=== PATIENT | female | born 1990 | race Caucasian/White ===

== ENCOUNTER 2016-10-29 18:42 | Emergency (ER) | payer BC ==
[~2016-10-29] VITALS: Ht 160 cm; Wt 57.6 kg
[~2016-10-29 18:42] MED LIST: HYDR-3366 PO; MOBI15TA PO; ZOLO50TA PO
[2016-10-29 18:47] VITALS: BP 116/70; PULSE 73; RESP 16; TEMP 98.8; O2SAT 99
[2016-10-29] MEDS ORDERED: ONDANSETRON HCL 4 MG/2 ML VIAL IM ONE (19:15)
[2016-10-29] MEDS ORDERED: MORPHINE SULFATE 4 MG/ML INJ IM ONE (19:15)
[2016-10-29] MEDS ORDERED: KETOROLAC TROMETHAMINE 60 MG/2 ML (IM) VIAL IM ONE (19:15)
[2016-10-29] MEDS ORDERED: BUTA1CAP PO (19:20)
[2016-10-29] MEDS ORDERED: ZOFR4TAB PO (19:20)
--- NOTE | 2016-10-29 19:25 | PD ---
HPI Chief Complaint: Headache Time Seen by Provider: 19:01 Travel History International Travel<30 days: No Contact w/Intl Traveler<30days: No Traveled to known affect area: No History of Present Illness HPI The patient was seen and examined in the presence of the nurse. This patient complains of headache. She has chronic headaches frequently. She's had neurologic evaluation including brain imaging which was negative. She hasn't seen her neurologist in a while and is on no medications. She complains of bilateral frontal headache. She has nausea. No head injury or fever or blood thinners. Severity is moderate PFSH Past Medical History Diminished Hearing: No Fibromyalgia: Yes Headaches: Yes (CHRONIC) Immune Disorder: No Implanted Vascular Access Dvce: No Immunizations Current: Yes Tetanus Vaccination: > 5 Years Influenza Vaccination: Yes ?: Not LMP: 1 1/2 weeks ago Past Surgical History Section: Yes Social History Alcohol Use: No Tobacco Use: No Substance Use: No Allergies-Medications (Allergen,Severity, Reaction): Coded Allergies: No Known Allergies (Verified , 10/29/16) Reported Meds & Prescriptions Reported Meds & Active Scripts Active Zofran (Ondansetron HCl) 4 Mg Tab 4 Mg PO Q6HR PRN Fioricet (Zwvqqpyeed-Uxhnkwdknbqpl-Utbergpa) 50-300-40 Mg Cap 1 Cap PO Q4H PRN Review of Systems General / Constitutional: No: Fever HENT: Positive: Headaches Cardiovascular: No: Chest Pain or Discomfort Gastrointestinal: Positive: Nausea Physical Exam Narrative GENERAL: Well-nourished, well-developed patient with headache. SKIN: Warm and dry. HEAD: Atraumatic. Normocephalic. EYES: Pupils equal and round. No scleral icterus. No injection or drainage. ENT: No nasal bleeding or discharge. Mucous membranes pink and moist. NECK: Trachea midline. No JVD. No meningeal signs CARDIOVASCULAR: Regular rate and rhythm. No murmur appreciated. RESPIRATORY: No accessory muscle use. Clear to auscultation. Breath sounds equal bilaterally. GASTROINTESTINAL: Abdomen soft, non-tender, nondistended. Hepatic and splenic margins not palpable. MUSCULOSKELETAL: No obvious deformities. No clubbing. No cyanosis. No edema. NEUROLOGICAL: Awake and alert. No obvious cranial nerve deficits. Motor grossly within normal limits. Normal speech. PSYCHIATRIC: Appropriate mood and affect; insight and judgment normal. Data Data Last Documented VS Vital Signs Date Time Temp Pulse Resp B/P Pulse Ox O2 Delivery O2 Flow Rate FiO2 10/29/16 19:03 73 18 99 Room Air 10/29/16 18:47 98.8 116/70 Orders Ondansetron Inj (Zofran Inj) (10/29/16 19:15) Ketorolac Inj (Toradol Inj) (10/29/16 19:15) Morphine Inj (Morphine Inj) (10/29/16 19:15) MDM Medical Decision Making Medical Screen Exam Complete: Yes Emergency Medical Condition: Yes Medical Record Reviewed: Yes Differential Diagnosis Differential diagnosis includes migraine, tension headache, cluster headache, meningitis. Narrative Course I have reviewed the patient's electronic medical record. Patient does not have any red flags to suggest emergent imaging is indicated. No thunderclap onset. This seems similar to her chronic headaches but a bit more pronounced. She is neurologically intact without injury. I gave her injection of Toradol and morphine and Zofran for symptom relief Prescription for Zofran and Fioricet written Recommend she contact her neurologist tomorrow for follow-up Diagnosis Primary Impression: Headache Qualified Code: G44.209 - Acute non intractable tension-type headache Additional Instructions: The patient was advised to follow up with their physician and return if they worsen. The patient was warned about potential sedation for the medications they will receive on prescription. Med/Other Pt SpecificInfo: Prescription(s) given Scripts Ondansetron (Zofran)4 Mg Tab4 Mg PO Q6HR PRN (NAUSEA OR VOMITING) #12 TAB Ref 0 Prov:Quoc Simpson MD 10/29/16 Lkikbcrtnn-Mqrikrnkbuqmu-Fdysiuuh (Fioricet)50-300-40 Mg Cap1 Cap PO Q4H PRN ( HEADACHE) #15 CAP Ref 0 Prov:Quoc Simpson MD 10/29/16 Disposition: 01 DISCHARGE HOME Condition: Stable Quoc Simpson MD Oct 29, 2016 19:25
[2016-10-29 19:43] VITALS: RESP 18
[2016-10-29 19:54] VITALS: BP 133/82
== END 2016-10-29 19:56 | disposition home or self-care (01) ==
LOC: PHED 18:42
DX: G44.209 Tension-type headache, unspecified, not intractable (principal); R11.2 Nausea with vomiting, unspecified; M79.7 Fibromyalgia
CPT/HCPCS: 96372; 99283; J1885; J2270; J2405

== ENCOUNTER 2017-01-17 21:35 | Emergency (ER) | payer BC ==
[~2017-01-17] VITALS: Ht 160 cm; Wt 57.8 kg
[~2017-01-17 21:35] MED LIST changes: +BUTA1CAP PO; -HYDR-3366 PO; -MOBI15TA PO; +ZOFR4TAB PO; -ZOLO50TA PO
[2017-01-17 21:55] VITALS: BP 124/71; PULSE 87; RESP 16; TEMP 98.2; O2SAT 95
[2017-01-17 22:10] VITALS: BP 130/74; PULSE 71; RESP 14; TEMP 98.3; O2SAT 96
[2017-01-17] MEDS ORDERED: CYCL1TAB29 PO (23:28)
--- NOTE | 2017-01-17 23:28 | PD ---
HPI Chief Complaint: Pain: Acute or Chronic Time Seen by Provider: 23:27 Travel History International Travel<30 days: No Contact w/Intl Traveler<30days: No Traveled to known affect area: No History of Present Illness HPI Is a 26-year-old female presents emergency department for evaluation of right arm pain. Patient states that she does not remember having any particular trauma. She states that she noticed her hand was trembling particularly when she flexes the wrist. States the pain has been going on for a day and has stabilized and not getting any better. She also feels like she feels a lump in the middle of her arm. Denies any weakness denies any paresthesias denies any fevers. PFSH Past Medical History Arthritis: Yes Diminished Hearing: No Fibromyalgia: Yes Headaches: Yes (CHRONIC) Immune Disorder: No Implanted Vascular Access Dvce: No Immunizations Current: Yes Tetanus Vaccination: > 5 Years ?: Not LMP: 01/11/17 : 1 Para: 1 Miscarriage: 0 : 0 Past Surgical History Section: Yes Social History Alcohol Use: No Tobacco Use: No Substance Use: No Allergies-Medications (Allergen,Severity, Reaction): Coded Allergies: No Known Allergies (Verified , 10/29/16) Reported Meds & Prescriptions Reported Meds & Active Scripts Active Flexeril (Cyclobenzaprine HCl) 10 Mg Tab 10 Mg PO TID Zofran (Ondansetron HCl) 4 Mg Tab 4 Mg PO Q6HR PRN Fioricet (Qopjfqloho-Zczzlywwzudsq-Excaqdmm) 50-300-40 Mg Cap 1 Cap PO Q4H PRN Review of Systems Except as stated in HPI: all other systems reviewed are Neg Physical Exam Narrative GENERAL: Well-nourished, well-developed patient. In no apparent distress SKIN: Focused skin assessment warm/dry. HEAD: Normocephalic. EYES: No scleral icterus. No injection or drainage. NECK: Supple, trachea midline. No JVD or lymphadenopathy. CARDIOVASCULAR: Regular rate and rhythm without murmurs, gallops, or rubs. RESPIRATORY: Breath sounds equal bilaterally. No accessory muscle use. GASTROINTESTINAL: Abdomen soft, non-tender, nondistended. MUSCULOSKELETAL: No cyanosis, or edema. Patient has some tenderness over the flexor compartment of the right forearm. Patient lump that she is feeling appears to be one of the muscle bodies. Equal bilaterally. Patient has full range of motion at the wrists and MCP and interphalangeal digits. Pulses motor and sensory intact distally in all 4 extremities. Compartments are soft. There is no tenderness to palpation of the right forearm. She does have some tenderness with flexion of the wrist. Tinel's and Phalen signs negative. BACK: Nontender without obvious deformity. No CVA tenderness. Data Data Last Documented VS Vital Signs Date Time Temp Pulse Resp B/P Pulse Ox O2 Delivery O2 Flow Rate FiO2 01/17/17 23:08 71 18 01/17/17 22:10 98.3 130/74 96 Room Air Orders Ed Urine Pregnancytest Poc (01/17/17 21:56) Cyclobenzaprine (Flexeril) (01/17/17 23:30) Splint Or Brace Apply/Monitor (01/17/17 23:27) Cockup Hand Splint (01/17/17 ) MDM Medical Decision Making Medical Screen Exam Complete: Yes Emergency Medical Condition: Yes Differential Diagnosis Strain, sprain, fracture highly unlikely. Narrative Course Patient was roomed in the emergency department, she appears well. She is right- hand-dominant female with right forearm pain and pain with flexion. Unlikely this represents a muscle strain. Discussed with her symptomatically management returned ED criteria need follow-up the primary care physician. Expect 2-3 weeks tenderness. She will be placed in the soft wrist splint for comfort. No indication further workup at this time. Diagnosis Primary Impression: STRAIN OF MUSC/FASC/TEND AT FOREARM LEVEL, RIGHT ARM, INIT Patient Instructions: General Instructions, RICE Therapy (ED) Med/Other Pt SpecificInfo: Prescription(s) given Scripts Cyclobenzaprine (Flexeril)10 Mg Tab10 Mg PO TID #20 TAB Ref 0 Prov:Que Perdomo MD 01/17/17 Disposition: 01 DISCHARGE HOME Condition: Stable Que Perdomo MD Jan 17, 2017 23:28
[2017-01-17] MEDS ORDERED: CYCLOBENZAPRINE HCL 10 MG TAB PO ONE (23:30)
== END 2017-01-17 23:49 | disposition home or self-care (01) ==
LOC: PHED 21:35 → PHEFT 23:49
DX: S56.911A Strain of unspecified muscles, fascia and tendons at forearm level, right arm, initial encounter (principal); Z87.39 Personal history of other diseases of the musculoskeletal system and connective tissue; X58.XXXA Exposure to other specified factors, initial encounter
CPT/HCPCS: 84703; 99283; L3908

== ENCOUNTER 2017-02-06 18:21 | Emergency (ER) | payer BC ==
[~2017-02-06] VITALS: Ht 160 cm; Wt 54.1 kg
[~2017-02-06 18:21] MED LIST changes: +CYCL1TAB29 PO
[2017-02-06 18:24] VITALS: BP 124/76; PULSE 86; RESP 16; TEMP 98.2; O2SAT 100
[2017-02-06] MEDS ORDERED: CLIN1CAP6 PO (18:51)
[2017-02-06] MEDS ORDERED: PERI0.126 SWISH-SPIT (18:51)
--- NOTE | 2017-02-06 18:52 | PD ---
HPI Chief Complaint: Oral / Dental Pain or Problem Time Seen by Provider: 18:49 Travel History International Travel<30 days: No Contact w/Intl Traveler<30days: No Traveled to known affect area: No History of Present Illness HPI 26-year-old female presents to the emergency department for evaluation of left upper dental pain that started yesterday. She is taking ibuprofen at home for the pain. She states she tried to see her dentist, but he cannot see her until next week. She's had no fevers, but positive chills. She has no chronic medical problems and takes no medications. Patient denies any allergies. She denies any chance of . She has no other complaints at this time. PFS Past Medical History Arthritis: Yes Diminished Hearing: No Fibromyalgia: Yes Gastrointestinal Disorders: No Headaches: Yes (CHRONIC) Immune Disorder: No Implanted Vascular Access Dvce: No Immunizations Current: Yes Tetanus Vaccination: < 5 Years ?: Not LMP: now : 1 Para: 1 Miscarriage: 0 : 0 Past Surgical History Section: Yes Other Surgery: No Social History Alcohol Use: No Tobacco Use: No Substance Use: No Allergies-Medications (Allergen,Severity, Reaction): Coded Allergies: No Known Allergies (Verified , 02/06/17) Reported Meds & Prescriptions Reported Meds & Active Scripts Active Review of Systems Except as stated in HPI: all other systems reviewed are Neg Physical Exam Narrative GENERAL: Well-nourished, well-developed female patient, ambulatory. Afebrile. SKIN: Focused skin assessment warm/dry. HEAD: Normocephalic. Atraumatic. ENT: Mucosa pink and moist. No erythema or exudates. No uvular edema. No uvular , palatal, or tonsillar deviation. Airway patent. Nasal turbinates appear normal without nasal blood, purulent drainage or septal hematoma. Bilateral tympanic membranes are clear without erythema or perforation. Patient has tenderness of the gingiva above tooth #14, 15. No obvious fluctuance. No Arpan angina. EYES: No scleral icterus. No injection or drainage. NECK: Supple, trachea midline. No JVD or lymphadenopathy. CARDIOVASCULAR: Regular rate and rhythm without murmurs, gallops, or rubs. RESPIRATORY: Breath sounds equal bilaterally. No accessory muscle use. Lungs sounds are clear to auscultation. GASTROINTESTINAL: Abdomen soft, non-tender, nondistended. MUSCULOSKELETAL: No cyanosis, or edema. Data Data Last Documented VS Vital Signs Date Time Temp Pulse Resp B/P Pulse Ox O2 Delivery O2 Flow Rate FiO2 02/06/17 18:24 98.2 86 16 124/76 100 Orders Clindamycin (Cleocin) (02/06/17 19:00) MDM Medical Decision Making Medical Screen Exam Complete: Yes Emergency Medical Condition: Yes Medical Record Reviewed: Yes Differential Diagnosis Dental abscess versus dental caries versus gingivitis Narrative Course 26 showed female presents to the emergency department for evaluation of dental pain that started yesterday. Physical exam is consistent with a beginning dental abscess. She'll be discharged with a prescription for clindamycin, Peridex oral solution. She is continue ibuprofen [id number]-[id number] as needed for pain. She is to follow-up with her dentist next week as scheduled. She is return for any acute worsening of symptoms. She verbalizes agreement and understanding. The patient was discharged in stable condition with instructions, including return instructions and follow up instructions. Diagnosis Primary Impression: Dental abscess Referrals: Dentist 1 week Patient Instructions: Dental Abscess (ED), General Instructions Additional Instructions: Take antibiotic as directed until gone. Use Peridex oral solution as directed. Urxe-png-subctwk ibuprofen as instructed as needed with food for pain. Follow-up with your dentist. Return to the emergency department for any acute worsening of symptoms. Med/Other Pt SpecificInfo: Prescription(s) given Scripts Chlorhexidine Gluconate (Mouth) Liq (Peridex Liq)0.12% Soln15 Ml SWISH-SPIT BID #473 ML Ref 0 Prov:Maria Ines Stout 02/06/17 Clindamycin 300 Mg Ovo049 Mg PO Q6H 10 Days Ref 0 Prov:Maria Ines Stout 02/06/17 Disposition: 01 DISCHARGE HOME Condition: Stable Maria Ines Stout February 06, 2017 18:52
[2017-02-06] MEDS ORDERED: CLINDAMYCIN 150 MG CAP PO ONE (19:00)
== END 2017-02-06 19:05 | disposition home or self-care (01) ==
LOC: PHEFT 18:21
DX: K04.7 Periapical abscess without sinus (principal); M19.90 Unspecified osteoarthritis, unspecified site; M79.7 Fibromyalgia
CPT/HCPCS: 99283